=== PATIENT | male | born 1960 | race Caucasian/White ===

== ENCOUNTER 2020-04-08 07:44 | Day surgery (SDC) | payer BC ==
[2020-04-01 16:30] LABS: BASOPHILS # (AUTO) 0.1 X10'3 (0-0.2); BASOPHILS % (AUTO) 1.1 % (0-1); EOSINOPHILS # (AUTO) 0.1 X10'3 (0-0.9); EOSINOPHILS % (AUTO) 1.4 % (0-6); LYMPHOCYTES # (AUTO) 1.9 X10'3 (1.1-4.8); LYMPHOCYTES % (AUTO) 29.9 % (21-51); MEAN CORPUSCULAR HEMOGLOBIN 30.2 PG (27.0-31.0); MEAN CORPUSCULAR HGB CONC 34.5 g/dL (33.0-36.5); MEAN CORPUSCULAR VOLUME 87.6 FL (78-98); MEAN PLATELET VOLUME 6.9 FL (7.4-10.4); MONOCYTES # (AUTO) 0.7 X10'3 (0-0.9); MONOCYTES % (AUTO) 10.2 % (2-12); NEUTROPHILS # (AUTO) 3.7 X10'3 (1.8-7.7); NEUTROPHILS % (AUTO) 57.4 % (42-75); PRE OP HEMATOCRIT 44.5 % (42.0-52.0); PRE OP HEMOGLOBIN 15.3 g/dL (14.0-17.9); PRE OP PLATELET COUNT 189 X10'3 (140-440); RED BLOOD COUNT 5.08 X10'6 (4.70-6.10); RED CELL DISTRIBUTION WIDTH 13.3 % (11.5-14.5)
[2020-04-01 16:37] LABS: ALBUMIN 4.2 G/DL (3.4-5.0); ALBUMIN/GLOBULIN RATIO 1.3 (1.1-1.5); ALKALINE PHOSPHATASE 65 IU/L (46-116); BLOOD UREA NITROGEN 13 MG/DL (7-18); BUN/CREATININE RATIO 15.1 (5.4-32.0); CALCIUM 9.5 MG/DL (8.5-10.1); CHLORIDE 102 MMOL/L (99-107); CREATININE 0.86 MG/DL (0.60-1.10); PRE OP ALT 53 U/L (30-65); PRE OP ANION GAP 6 (8-16); PRE OP AST 37 U/L (10-37); PRE OP BILIRUB, TOTAL 0.4 MG/DL (0.0-1.0); PRE OP GLUCOSE 84 MG/DL (70-104); PRE OP SODIUM 138 MMOL/L (135-145); TOTAL CARBON DIOXIDE 30.4 MMOL/L (24-32); TOTAL PROTEIN 7.5 G/DL (6.4-8.2); eGFR > 90 ML/MIN
[2020-04-08] VITALS (10 sets, daily range): BP systolic 111–156; BP diastolic 70–100
[~2020-04-08] VITALS: Ht 167.6 cm; Wt 73.5 kg
[~2020-04-08 07:44] MED LIST: BUPIVAcaine/PF 2.5mg/ml (0.25%) 10ml vial ONE; PARO20TA6 PO; SIMV-42 PO; ceFAZolin/D5W- 1GM premix 50 ML IV ONE; famotidine 20mg tablet PO ONE; ringers solution, lacted 1,000 ML IV SCH
[2020-04-08] MEDS ORDERED: ringers solution, lacted 1,000 ML IV SCH (09:21)
[2020-04-08] MEDS ORDERED: LIDOcaine 0.5% (5mg/ml) 50ml vial ONE (09:23)
[2020-04-08] MEDS ORDERED: morphine 2 MG/ML inj. syringe IV PRN (09:25)
[2020-04-08] MEDS ORDERED: labetalol 20mg/4ml (5mg/ml) syringe IV PRN (09:25)
[2020-04-08] MEDS ORDERED: proCHLORperazine 10 MG/2 ml inj IV PRN (09:25)
[2020-04-08] MEDS ORDERED: meperidine/PF 25mg/ml syringe IV PRN (09:25)
[2020-04-08] MEDS ORDERED: ondansetron/PF 4mg/2ml inj IV PRN (09:25)
[2020-04-08] MEDS ORDERED: hydrALAZINE 20mg/ml inj. IV PRN (09:25)
[2020-04-08] MEDS ORDERED: morphine 4 MG/ML inj SYRINge IV PRN (09:25)
[2020-04-08] MEDS ORDERED: HYDROmorphone inj. 0.5 MG/0.5 ML DISP.SYRIN IV PRN ×2 (09:25)
[2020-04-08] MEDS ORDERED: fentaNYL/PF 50MCG/1 ML 2ML syringe ONE (10:26)
[2020-04-08] MEDS ORDERED: midazolam 2 mg/2 ml injection ONE (10:35)
[2020-04-08] MEDS ORDERED: LIDOcaine 1%/PF 5ML 10 MG/ML VIAL ONE ×2 (10:36)
[2020-04-08] MEDS ORDERED: 0.9 % SODIUM CHLORIDE 10 ML VIAL ONE ×2 (10:37)
[2020-04-08] MEDS ORDERED: propofol inj 20 ML IV ONE ×3 (10:43→11:18)
--- NOTE | 2020-04-08 11:41 | NUR ---
Received from OR via [facility], accompanied by Anesthesiologist DR BRITT and report given by Anesthesiologist. 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 Addendum: 04/08/20 at 1234 by Bethany Burrows RN Amended: Links added.
--- NOTE | 2020-04-08 13:21 | NUR ---
D/C INSTRUCTIONS GIVEN AND GONE OVER W/PT WHO VERBALIZED UNDERSTANDING, PT D/CD TO HOME VIA W/C TO PRIVATE VEHICLE W/O INCIDENT. Addendum: 04/08/20 at 1353 by Bethany Burrows RN Amended: Links added.
== END 2020-04-08 10:50 | disposition home or self-care (01) ==
LOC: PAS 07:44
PROVIDERS: ATTEND Orthopaedic Surgery Hand Surgery
DX: S66.115A Strain of flexor muscle, fascia and tendon of left ring finger at wrist and hand level, initial encounter (principal); Z85.72 Personal history of non-Hodgkin lymphomas; Z72.89 Other problems related to lifestyle; Z20.828 Contact with and (suspected) exposure to other viral communicable diseases; Z79.899 Other long term (current) drug therapy; Z98.890 Other specified postprocedural states; X58.XXXA Exposure to other specified factors, initial encounter; Y99.8 Other external cause status; Y93.89 Activity, other specified; Y92.89 Other specified places as the place of occurrence of the external cause
CPT/HCPCS: 26350; 36415; 80053; 82948; 85025; 87635; 93005; C1713; J0690; J2001; J2250; J2704; J3010; J3490; J7120; A4215; A4618; A7000

== ENCOUNTER 2020-12-02 09:02 | Day surgery (SDC) | payer BC ==
[2020-11-25 11:53] LABS: BASOPHILS # (AUTO) 0.1 X10'3 (0-0.2); BASOPHILS % (AUTO) 1.2 % (0-1); EOSINOPHILS # (AUTO) 0.1 X10'3 (0-0.9); EOSINOPHILS % (AUTO) 2.1 % (0-6); LYMPHOCYTES # (AUTO) 1.7 X10'3 (1.1-4.8); LYMPHOCYTES % (AUTO) 36.3 % (21-51); MEAN CORPUSCULAR HEMOGLOBIN 30.3 PG (27.0-31.0); MEAN CORPUSCULAR HGB CONC 34.9 g/dL (33.0-36.5); MEAN PLATELET VOLUME 6.9 FL (7.4-10.4); MONOCYTES # (AUTO) 0.5 X10'3 (0-0.9); MONOCYTES % (AUTO) 10.6 % (2-12); NEUTROPHILS # (AUTO) 2.4 X10'3 (1.8-7.7); NEUTROPHILS % (AUTO) 49.8 % (42-75); PRE OP HEMATOCRIT 44.8 % (42.0-52.0); PRE OP HEMOGLOBIN 15.6 g/dL (14.0-17.9); PRE OP PLATELET COUNT 193 X10'3 (140-440); RED BLOOD COUNT 5.14 X10'6 (4.70-6.10); RED CELL DISTRIBUTION WIDTH 13.1 % (11.5-14.5)
[2020-11-25 12:03] LABS: ALBUMIN 4.1 G/DL (3.4-5.0); ALBUMIN/GLOBULIN RATIO 1.2 (1.1-1.5); ALKALINE PHOSPHATASE 69 IU/L (46-116); BLOOD UREA NITROGEN 10 MG/DL (7-18); BUN/CREATININE RATIO 13.9 (5.4-32.0); CHLORIDE 103 MMOL/L (99-107); CREATININE 0.72 MG/DL (0.60-1.10); PRE OP ALT 45 U/L (30-65); PRE OP ANION GAP 6 (8-16); PRE OP AST 33 U/L (10-37); PRE OP BILIRUB, TOTAL 0.4 MG/DL (0.0-1.0); PRE OP GLUCOSE 88 MG/DL (70-104); PRE OP POTASSIUM 4.2 MMOL/L (3.4-5.1); PRE OP SODIUM 138 MMOL/L (135-145); TOTAL CARBON DIOXIDE 28.9 MMOL/L (24-32); TOTAL PROTEIN 7.6 G/DL (6.4-8.2); eGFR > 90 ML/MIN
[2020-12-02] VITALS (8 sets, daily range): BP systolic 129–148; BP diastolic 80–94
[~2020-12-02] VITALS: Ht 167.6 cm; Wt 72.6 kg
[~2020-12-02 09:02] MED LIST changes: -BUPIVAcaine/PF 2.5mg/ml (0.25%) 10ml vial ONE; -ceFAZolin/D5W- 1GM premix 50 ML IV ONE; +cefazolin/dext.iso 2gm/100ml IV ONE
[2020-12-02] MEDS ORDERED: fentaNYL/PF 50MCG/1 ML 2ML syringe ONE (10:31)
[2020-12-02] MEDS ORDERED: midazolam 1 mg/ML 2ml injection ONE ×2 (10:32→10:35)
[2020-12-02] MEDS ORDERED: BUPIVAcaine/PF 2.5mg/ml (0.25%) 10ml vial ONE (10:51)
[2020-12-02] MEDS ORDERED: ringers solution, lacted 1,000 ML IV SCH (11:40)
[2020-12-02] MEDS ORDERED: proCHLORperazine 10 MG/2 ml inj IV PRN (11:40)
[2020-12-02] MEDS ORDERED: morphine 2 MG/ML inj. syringe IV PRN (11:40)
[2020-12-02] MEDS ORDERED: morphine 4 MG/ML inj SYRINge IV PRN (11:40)
[2020-12-02] MEDS ORDERED: meperidine/PF 25mg/ml syringe IV PRN ×3 (11:40)
[2020-12-02] MEDS ORDERED: ondansetron/PF 4mg/2ml inj IV PRN (11:40)
[2020-12-02] MEDS ORDERED: propofol inj 20 ML IV ONE (11:58)
[2020-12-02] MEDS ORDERED: LIDOcaine 2% (20mg/ml) 5ml vial ONE (12:08)
[2020-12-02] MEDS ORDERED: ROPIVAcaine 0.5% (5mg/ml) 30ml vial ONE (12:08)
--- NOTE | 2020-12-02 12:17 | NUR ---
RECEIVED PATIENT SPINE ON [facility], REPORT FROM ANESTHESIOLOGIST DR. MONAE, AWAKE TO VOICE, LEFT HAND AND ARM WITH DRESSING AND WRAP, PATIENT IS ABLE TO MOVE LEFT THUMB, RIGHT THUMB AND INDEX FINGER WARM TO TOUCH, 2-3 SEC CAP REFILL, PIV ON RIGHT WRIST 20G LR RUNNING, PUT A SLING ON LEFT ARM PER DR. BRADLEY'S ORDER, WILL MONITOR. Addendum: 12/02/20 at 1249 by Briseyda Whitehead RN Amended: Links added.
--- NOTE | 2020-12-02 13:27 | NUR ---
PATIENT'S V.S. STABLE, DENIES PAIN OR NAUSEA, DRESSING AND WRAP ON LEFT ARM WITH SLING ON, CDI, PIV D/C'D FROM RIGHT WRIST 20G CATH INTACT, TRANSFERRED TO PRIVATE VEHICLE ON WHEELCHAIR WITHOUT INCIDENTS, PATIENT TOOK ALL HIS BELONGINGS WITH HIM, HIS WILL TRANSFER PATIENT HOME. Addendum: 12/02/20 at 1339 by Briseyda Whitehead RN Amended: Links added.
== END 2020-12-02 13:27 | disposition home or self-care (01) ==
LOC: PAS 09:02
PROVIDERS: ATTEND Orthopaedic Surgery Hand Surgery
DX: S66.19 Other injury of flexor muscle, fascia and tendon of other and unspecified finger at wrist and hand level (principal); Z79.899 Other long term (current) drug therapy; Z20.822 Contact with and (suspected) exposure to COVID-19; G89.18 Other acute postprocedural pain; Z98.890 Other specified postprocedural states; Z85.72 Personal history of non-Hodgkin lymphomas; X58.XXXD Exposure to other specified factors, subsequent encounter
CPT/HCPCS: 26390; 36415; 64417; 76942; 80053; 85025; 93005; C1713; J2001; J2250; J2704; J3010; J3490; U0003; U0005; A4215; A4565; A4618; A7000; J2795; J7120

== ENCOUNTER 2021-03-07 05:22 | Day surgery (SDC) | payer BC ==
[2021-02-28 14:23] LABS: BASOPHILS # (AUTO) 0.1 X10'3 (0-0.2); BASOPHILS % (AUTO) 1.1 % (0-1); EOSINOPHILS # (AUTO) 0.1 X10'3 (0-0.9); EOSINOPHILS % (AUTO) 2.4 % (0-6); LYMPHOCYTES # (AUTO) 1.5 X10'3 (1.1-4.8); LYMPHOCYTES % (AUTO) 26.6 % (21-51); MEAN CORPUSCULAR HGB CONC 34.5 g/dL (33.0-36.5); MEAN CORPUSCULAR VOLUME 87.1 FL (78-98); MONOCYTES # (AUTO) 0.6 X10'3 (0-0.9); MONOCYTES % (AUTO) 9.7 % (2-12); NEUTROPHILS # (AUTO) 3.4 X10'3 (1.8-7.7); NEUTROPHILS % (AUTO) 60.2 % (42-75); PRE OP HEMATOCRIT 46.2 % (42.0-52.0); PRE OP HEMOGLOBIN 15.9 g/dL (14.0-17.9); PRE OP PLATELET COUNT 196 X10'3 (140-440); RED BLOOD COUNT 5.31 X10'6 (4.70-6.10); RED CELL DISTRIBUTION WIDTH 12.8 % (11.5-14.5)
[2021-02-28 14:34] LABS: ALBUMIN 4.2 G/DL (3.4-5.0); ALBUMIN/GLOBULIN RATIO 1.2 (1.1-1.5); ALKALINE PHOSPHATASE 92 IU/L (46-116); BLOOD UREA NITROGEN 14 MG/DL (7-18); BUN/CREATININE RATIO 15.7 (5.4-32.0); CALCIUM 9.4 MG/DL (8.5-10.1); CHLORIDE 104 MMOL/L (99-107); CREATININE 0.89 MG/DL (0.60-1.10); PRE OP ALT 57 U/L (30-65); PRE OP ANION GAP 7 (8-16); PRE OP AST 36 U/L (10-37); PRE OP BILIRUB, TOTAL 0.3 MG/DL (0.0-1.0); PRE OP GLUCOSE 105 MG/DL (70-104); PRE OP POTASSIUM 3.9 MMOL/L (3.4-5.1); PRE OP SODIUM 141 MMOL/L (135-145); TOTAL CARBON DIOXIDE 30.3 MMOL/L (24-32); TOTAL PROTEIN 7.7 G/DL (6.4-8.2); eGFR 88 ML/MIN
[~2021-03-07] VITALS: Ht 167.6 cm; Wt 74.0 kg
[2021-03-07] VITALS (9 sets, daily range): BP systolic 137–171; BP diastolic 91–111
[~2021-03-07 05:22] MED LIST changes: -cefazolin/dext.iso 2gm/100ml IV ONE; -famotidine 20mg tablet PO ONE
[2021-03-07] MEDS ORDERED: famotidine 20mg tablet PO ONE (05:30)
[2021-03-07] MEDS ORDERED: cefazolin/dext.iso 2gm/100ml IV ONE (05:30)
[2021-03-07] MEDS ORDERED: BUPIVAcaine/PF 2.5mg/ml (0.25%) 10ml vial ONE ×2 (06:42→08:35)
[2021-03-07] MEDS ORDERED: fentaNYL/PF 50MCG/1 ML 2ML syringe ONE (07:20)
[2021-03-07] MEDS ORDERED: midazolam 1 mg/ML 2ml injection ONE ×2 (07:21→07:32)
[2021-03-07] MEDS ORDERED: LIDOcaine 0.5% (5mg/ml) 50ml vial ONE (07:22)
[2021-03-07] MEDS ORDERED: propofol inj 20 ML IV ONE (07:34)
[2021-03-07] MEDS ORDERED: meperidine/PF 25mg/ml syringe IV PRN ×3 (07:55)
[2021-03-07] MEDS ORDERED: proCHLORperazine 10 MG/2 ml inj IV PRN (07:55)
[2021-03-07] MEDS ORDERED: ondansetron/PF 4mg/2ml inj IV PRN (07:55)
[2021-03-07] MEDS ORDERED: ringers solution, lacted 1,000 ML IV SCH (07:55)
[2021-03-07] MEDS ORDERED: morphine 4 MG/ML inj SYRINge IV PRN (07:55)
[2021-03-07] MEDS ORDERED: morphine 2 MG/ML inj. syringe IV PRN (07:55)
--- NOTE | 2021-03-07 08:34 | NUR ---
Received from OR via [facility], accompanied by Anesthesiologist DR GONZALES and report given by Anesthesiologist. PT DROWSY, C/O SLIGHT PAIN TO LEFT TIP OF FINGER. LEFT HAND W/BIAS WRAP COVERING INCISION/DRSG/SPLINT CDI. 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 Addendum: 03/07/21 at 0902 by Bethany Burrows RN Amended: Links added.
--- NOTE | 2021-03-07 09:54 | NUR ---
PT UP AND ABLE TO AMBULATE, VOIDED, PAIN TOLERABLE. D/C INSTRUCTIONS GIVEN AND GONE OVER W/PT WHO VERBALIZED UNDERSTANDING. PT D/CD TO HOME VIA W/C TO PRIVATE VEHICLE W/O INCIDENT. Addendum: 03/07/21 at 1017 by Bethany Burrows RN Amended: Links added.
== END 2021-03-07 09:54 | disposition home or self-care (01) ==
LOC: PAS 05:22
PROVIDERS: ATTEND Orthopaedic Surgery Hand Surgery
DX: S66.123D Laceration of flexor muscle, fascia and tendon of left middle finger at wrist and hand level, subsequent encounter (principal); Z98.890 Other specified postprocedural states; Z72.89 Other problems related to lifestyle; Z85.72 Personal history of non-Hodgkin lymphomas; Z79.899 Other long term (current) drug therapy; Z20.822 Contact with and (suspected) exposure to COVID-19; X58.XXXD Exposure to other specified factors, subsequent encounter
CPT/HCPCS: 26392; 36415; 80053; 82948; 85025; J2001; J2175; J2250; J2704; J3010; J3490; U0003; U0005; Z7506; Z7508; Z7512; A4215; A4615; A4618; A7000; J7120